=== PATIENT | female | born 1945 | race Caucasian/White ===

== ENCOUNTER 2020-12-06 08:28 | Outpatient (CLI) | payer MEDICARE, BC | END 2020-12-06 08:29 | disposition home or self-care (01) | LOC: CSHCT 08:28 | PROVIDERS: ATTEND Urology | DX: R31.0 Gross hematuria (principal); K44.9 Diaphragmatic hernia without obstruction or gangrene; N28.1 Cyst of kidney, acquired; N20.0 Calculus of kidney | CPT/HCPCS: 74178; 82565 ==

== ENCOUNTER 2021-05-07 12:53 | Emergency (ER) | payer MEDICARE, BC ==
[2021-05-07] MEDS ORDERED: Ketorolac Tromethamine 30 MG/ML VIAL ONE (14:28)
[2021-05-07 14:57] LABS: #Eosinphils 0.1 10x3/uL (0.0-0.5); #Monocytes 0.3 10x3/uL (0.0-1.1); #Neutrophils 2.6 10x3/uL (1.5-8.4); %Basophils 0.5 % (0.0-2.0); %Eosinophils 1.4 % (0.0-6.0); %Lymphocytes 30.4 % (18.0-47.0); %Monocytes 7.6 % (0.0-10.0); %Neutrophils 59.4 % (40.0-75.0); Hemoglobin 10.7 g/dL (12.0-15.5); Mean Corpuscular HGB CONC 32.5 g/dL (32.0-36.0); Mean Corpuscular Hemoglobin 31.2 pg (27.0-33.0); Mean Corpuscular Volume 95.9 fl (81.6-98.3); Mean Platelet Volume 9.3 fl (7.4-10.4); Platelet Count 258 10x3/uL (150-450); RBC Distribution Width 13.4 % (11.5-14.5); Red Blood Cell (RBC) Count 3.43 10x6/uL (3.90-5.03); White Blood Cell (WBC) Count 4.3 10x3/uL (3.5-10.5)
[2021-05-07 15:02] LABS: ALT (SGPT) 16 U/L (8-55); AST (SGOT) 30 U/L (5-34); Albumin 4.1 g/dL (3.4-4.8); Alkaline Phosphatase 113 U/L (40-110); Anion Gap 12 mmol/L (10-20); BUN (Urea Nitrogen) 10 mg/dL (9.8-20.1); Bilirubin, Total 0.6 mg/dL (0.2-1.2); CK (CPK) 58 U/L (29-168); Calc. Creatinine Clearance 0 mL/min (70-130); Calcium 9.5 mg/dL (7.8-10.44); Carbon Dioxide 28 mmol/L (23-31); Chloride 106 mmol/L (98-107); Globulin 2.9 g/dL (2.4-3.5); Glucose 87 mg/dL (83-110); Potassium 3.9 mmol/L (3.5-5.1); Sodium 142 mmol/L (136-145)
[2021-05-07 15:58] LABS: Bilirubin Neg (Negative); Blood, Urine Negative (Negative); Clarity Clear (Clear); Glucose, Urine (Dipstick) Normal (Negative); Ketone, Urine 15 mg/dL (Negative); Leukocyte 100 (Negative); Nitrite Negative (Negative); Protein, Urine (Dipstick) Negative (Neg-Trace); Urobilinogen Normal mg/dL (Less than 2)
[2021-05-07 16:33] LABS: Bacteria/HPF 1+ HPF (None Seen); RBC/HPF 0-3 HPF (0-3); Squamous Epithelial 0-3 HPF (0-3)
== END 2021-05-07 16:04 | disposition home or self-care (01) ==
LOC: CSHERS 12:53
DX: U07.1 COVID-19 (principal); I48.91 Unspecified atrial fibrillation
CPT/HCPCS: 71045; 80053; 81003; 81015; 82550; 83605; 85025; 86140; 87040; 87086; 93005; 96374; J1885

== ENCOUNTER 2021-06-17 13:11 | Outpatient (CLI) | payer MEDICARE, BC | END 2021-06-17 13:12 | disposition home or self-care (01) | LOC: CSHCT 13:11 | PROVIDERS: ATTEND Nurse Practitioner Family | DX: M54.16 Radiculopathy, lumbar region (principal); Z98.890 Other specified postprocedural states; M47.816 Spondylosis without myelopathy or radiculopathy, lumbar region; M48.061 Spinal stenosis, lumbar region without neurogenic claudication; M41.86 Other forms of scoliosis, lumbar region; N20.0 Calculus of kidney | CPT/HCPCS: 72131 ==

== ENCOUNTER 2021-12-05 11:54 | Outpatient (CLI) | payer MEDICARE, BC | END 2021-12-05 11:55 | disposition home or self-care (01) | LOC: CSHLAB 11:54 | PROVIDERS: ATTEND Surgery | DX: Z20.822 Contact with and (suspected) exposure to COVID-19 (principal) | CPT/HCPCS: 87811 ==

== ENCOUNTER 2021-12-10 05:52 | Day surgery (SDC) | payer MEDICARE, BC ==
[2021-12-06 13:57] VITALS: BMI 22.3
[2021-12-10] MEDS ORDERED: Lidocaine 1% MPF 2 ML VIAL ONE (07:10)
[2021-12-10] MEDS ORDERED: PROPOFOL 20 ML ONE ×2 (07:26→08:03)
[2021-12-10] MEDS ORDERED: Lidocaine 1% PF 5 ML VIAL ONE (07:26)
== END 2021-12-10 08:57 | disposition home or self-care (01) ==
LOC: CSHSDC 05:52
PROVIDERS: ATTEND Surgery
PROC: 0DJD8ZZ Inspection of Lower Intestinal Tract, Via Natural or Artificial Opening Endoscopic (ICD-10-PCS; principal; 2021-12-10)
PROC: 0DB68ZX Excision of Stomach, Via Natural or Artificial Opening Endoscopic, Diagnostic (ICD-10-PCS; 2021-12-10)
DX: Z12.11 Encounter for screening for malignant neoplasm of colon (principal); K57.30 Diverticulosis of large intestine without perforation or abscess without bleeding; K21.00 Gastro-esophageal reflux disease with esophagitis, without bleeding; K44.9 Diaphragmatic hernia without obstruction or gangrene; K29.50 Unspecified chronic gastritis without bleeding; I48.91 Unspecified atrial fibrillation; E11.9 Type 2 diabetes mellitus without complications; E78.5 Hyperlipidemia, unspecified; D64.9 Anemia, unspecified; M19.90 Unspecified osteoarthritis, unspecified site; Z79.01 Long term (current) use of anticoagulants; Z79.84 Long term (current) use of oral hypoglycemic drugs; Z79.899 Other long term (current) drug therapy; Z88.8 Allergy status to other drugs, medicaments and biological substances; Z90.710 Acquired absence of both cervix and uterus; Z98.890 Other specified postprocedural states
CPT/HCPCS: 43239; G0121; 88305; 88342; J2704

== ENCOUNTER 2021-12-23 13:17 | Outpatient (CLI) | payer MEDICARE, BC | END 2021-12-23 13:18 | disposition home or self-care (01) | LOC: CSHLAB 13:17 | PROVIDERS: ATTEND Surgery | DX: Z20.822 Contact with and (suspected) exposure to COVID-19 (principal) | CPT/HCPCS: 87811 ==

== ENCOUNTER 2021-12-27 08:29 | Outpatient (CLI) | payer MEDICARE, BC | END 2021-12-27 08:30 | disposition home or self-care (01) | LOC: CSHRAD 08:29 | PROVIDERS: ATTEND Surgery | DX: K44.9 Diaphragmatic hernia without obstruction or gangrene (principal); K21.9 Gastro-esophageal reflux disease without esophagitis; K22.89 Other specified disease of esophagus | CPT/HCPCS: 74246 ==

== ENCOUNTER 2022-04-29 10:20 | Outpatient (CLI) | payer MEDICARE, BC | END 2022-04-29 10:21 | disposition home or self-care (01) | LOC: CSHRAD 10:20 | PROVIDERS: ATTEND Surgery | DX: K21.9 Gastro-esophageal reflux disease without esophagitis (principal); K22.2 Esophageal obstruction; Z98.890 Other specified postprocedural states | CPT/HCPCS: 74246 ==

== ENCOUNTER 2023-04-10 06:55 | Day surgery (SDC) | payer MEDICARE, BC ==
[2023-04-09 12:24] VITALS: BMI 21.6
[2023-04-10] MEDS ORDERED: Lidocaine 1% PF 5 ML VIAL ONE (09:57)
[2023-04-10] MEDS ORDERED: PROPOFOL 20 ML ONE ×2 (09:57→10:10)
== END 2023-04-10 11:05 | disposition home or self-care (01) ==
LOC: CSHSDC 06:55
PROVIDERS: ATTEND Surgery
PROC: 0DB68ZX Excision of Stomach, Via Natural or Artificial Opening Endoscopic, Diagnostic (ICD-10-PCS; principal; 2023-04-10)
PROC: 0D758ZZ Dilation of Esophagus, Via Natural or Artificial Opening Endoscopic (ICD-10-PCS; 2023-04-10)
DX: K31.89 Other diseases of stomach and duodenum (principal); K21.00 Gastro-esophageal reflux disease with esophagitis, without bleeding; K29.50 Unspecified chronic gastritis without bleeding; I10 Essential (primary) hypertension; I48.0 Paroxysmal atrial fibrillation; E11.9 Type 2 diabetes mellitus without complications; Z88.8 Allergy status to other drugs, medicaments and biological substances; Z79.01 Long term (current) use of anticoagulants; Z79.899 Other long term (current) drug therapy
CPT/HCPCS: 88305; J2704